=== PATIENT | female | born 1970 | race Caucasian/White ===

== ENCOUNTER 2021-02-14 10:14 | Day surgery (SDC) | payer MEDICARE, OTHER ==
[2021-02-09 13:01] VITALS: BMI 30.2
[~2021-02-14 10:14] MED LIST: LACTATED RINGERS 1,000 ML IV SCH; LIDOCAINE 1% (10MG/ML) FOR IV START INTRADERMA PRN
[2021-02-14 10:49] VITALS: RESP 16; TEMP 98.4
[2021-02-14] MEDS ORDERED: PROPOFOL 10 MG/ML 20 ML VIAL IV ONE (11:28)
[2021-02-14] MEDS ORDERED: LIDOCAINE 1% INJ 10MG/ML (20 ML MDV) ONE (11:28)
--- NOTE | 2021-02-14 11:42 | P.PCN ---
Date of Procedure: 02/14/21 Procedure(s) Performed: BRIEF HISTORY: Patient is a 50-year-old, pleasant, white female scheduled for an upper endoscopy with possible dilation as a part of evaluation of progressive dysphagia to solids for the last 3 months duration. No recent weight loss. She denies any heartburn. She never had these symptoms in the past.. PROCEDURE PERFORMED: Esophagogastroduodenoscopy. PREOPERATIVE DIAGNOSIS: Progressive dysphagia to solids of 3 months duration. IV sedation per anesthesia. PROCEDURE: After informed consent was obtained, the patient was brought into the endoscopy unit. IV sedation was administered by Anesthesia under continuous monitoring. Initially the Olympus GIF-140 video endoscope was inserted into the mouth. Esophagus intubated without any difficulty. It was gradually advanced into the stomach and duodenum and carefully examined. The bulb and the second part of the duodenum appeared normal. The scope at this time was withdrawn to the stomach, adequately insufflated with air, and upon careful examination, mucosa of the antrum, body, cardia and the fundus appeared normal. The scope was then withdrawn into the esophagus. The GE junction was located at 32 cm from the incisors. Moderate size hiatal hernia noted. There were linear erosions and ulcerations in the distal esophagus consistent with LA grade C reflux esophagitis. Early distal esophageal stricture noted. Rest of esophagus appeared normal and the patient tolerated the procedure well. IMPRESSION: 1. Linear erosions and ulcerations in the distal esophagus consistent with LA grade C reflux esophagitis. 2. Early distal esophageal stricture. 3. Moderate size hiatal hernia RECOMMENDATIONS: The findings of this examination were discussed with the patient as well as a family.. She was started on Prilosec 20 mg twice daily and was briefly educated about antireflux measures. She'll be seen in office in 12 weeks. If she still has dysphagia and consider EGD with possible dilation.
[2021-02-14 12:04] VITALS: BP 120/77; PULSE 61
== END 2021-02-14 12:24 | disposition home or self-care (01) ==
LOC: ORWHC2ENDO 10:14
PROVIDERS: ATTEND Internal Medicine Gastroenterology
DX: K22.2 Esophageal obstruction (principal); K44.9 Diaphragmatic hernia without obstruction or gangrene; K22.10 Ulcer of esophagus without bleeding; Z79.899 Other long term (current) drug therapy; Z88.5 Allergy status to narcotic agent; G35 Multiple sclerosis; Z98.890 Other specified postprocedural states
CPT/HCPCS: 81025; 43235; J2001; J2704

== ENCOUNTER → 2021-05-08 | Outpatient (CLI) | payer MEDICARE ==
--- NOTE | 2021-05-10 08:27 | MR ---
EXAMINATION TYPE: MR brain wo/w con DATE OF EXAM: 05/08/2021 COMPARISON: CT brain and CTA brain 07/18/[address] [facility] brain images are limited with lo ss of detail on the images transferred. HISTORY: Cerebral palsy, screening for depression, migraines CONTRAST: Performed utilizing 7 mL intravenous Gadavist gadolinium contrast. TECHNIQUE: Multiplanar, multiecho imaging on a 3.0 Belkys magnet is performed through the brain. Stud y is performed within 24 hours of arrival to the hospital. The craniovertebral junction is normal. The pituitary is normal. Corpus callosum is diffusely thinn ed. Diffusion-weighted imaging is performed. No abnormal hyperintensity is present to suggest an acute i ntracranial infarct or acute ischemic change. There is periventricular white matter hyperintensity which is partially confluent. Microvascular isch emic change should be considered. Multiple sclerosis is not excluded. There is thinning of the corpus callosum. Focal ischemia could be considered. No suspicious enhancement is evident. Sulci are appropriate for the patient age. Lateral ventricles are somewhat prominent for the patient' s age which can be related to atrophy. No temporal horn dilatation is evident suggest hydrocephalus. Third and fourth ventricles are midline. COMPARISON: The ventricles and periventricular white matter changes appear stable. There is suggestio n of corpus callosum thinning present previously. IMPRESSIONS: 1. 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
== END | disposition home or self-care (01) ==
LOC: RADMRIMAIN 12:47
PROVIDERS: ATTEND Psychiatry & Neurology Neurology
DX: G31.9 Degenerative disease of nervous system, unspecified (principal); I67.82 Cerebral ischemia
CPT/HCPCS: 70553; A9585